=== PATIENT | female | born 1965 | race Two or more races ===

== ENCOUNTER 2017-12-15 18:44 | Emergency (ER) | payer OTHER ==
[~2017-12-15] VITALS: Ht 149.9 cm; Wt 68.0 kg
[2017-12-15] MEDS ORDERED: Norco 5mg/325mg tab ORAL ONE (19:15)
--- NOTE | 2017-12-15 19:29 | Emergency Room Report ---
History of Present Illness General Chief Complaint: Burn/Smoke Inhalation Source: Patient Present Illness HPI 52-year-old female presents to the emergency department complaining of 10 out of 10 in severity pain to the left hand and forearm status post hot oil burn while at work. Patient almost fell and in the process she accidentally stuck her left hand into the fryer. Patient is not sure when her last tetanus vaccination was she denies taking blood thinning medications. She denies history of immunocompromise. reports pain with palpation or movement of the left hand/forearm. denies mittal elsewhere on the body. denies smoke inhalation, CP, palpitations or dizziness. pt .reports mechanical trip and almost fall. She denies hitting her head, Denies midline neck or back pain. Pt. states she is right hand dominant. Allergies: Coded Allergies: No Known Allergies (Unverified , 12/15/17) Patient History Limited by: language barrier Past Medical History: see triage record Pertinent Family History: none Last Menstrual Period: 09/06 Now: No Reviewed Nursing Documentation: PMH: Agreed; PSxH: Agreed Nursing Documentation-PMH Past Medical History: No History, Except For Hx Hypertension: Yes Review of Systems All Other Systems: negative except mentioned in HPI Physical Exam Vital Signs Date Time Temp Pulse Resp B/P (MAP) Pulse Ox O2 Delivery O2 Flow Rate FiO2 12/15/17 18:50 97.9 85 18 178/102 98 Room Air Sp02 EP Interpretation: reviewed, normal General Appearance: no apparent distress, alert, GCS 15, non-toxic Head: normocephalic, atraumatic Eyes: bilateral eye normal inspection, bilateral eye PERRL ENT: hearing grossly normal, normal voice Neck: full range of motion Respiratory: lungs clear, normal breath sounds, no respiratory distress, no wheezing, speaking full sentences Cardiovascular #1: regular rate, rhythm, normal capillary refill Musculoskeletal: back normal, gait/station normal, normal range of motion, non- tender Neurologic: alert, oriented x3, responsive, motor strength/tone normal, sensory intact, normal gait, speech normal - djiboutian speaking, grossly normal Psychiatric: judgement/insight normal Skin: no rash, warm/dry, well hydrated, mittal - 2 -degree circumferential burn to the left hand with splatter/ radiation to the mid left forearm covering 3 % of the BSA, non-circumferential, blister noted to the volar wrist area. Medical Decision Making PA Attestation Dr. Lauren is my supervising Physician whom patient management has been discussed with. Diagnostic Impression: Primary Impression: Second degree burn Additional Impression: Second degree burn of forearm Qualified Codes: T22.212A - Burn of second degree of left forearm, initial encounter ER Course 52-year-old female presents to the emergency department complaining of 10 out of 10 in severity pain to the left hand and forearm status post hot oil burn while at work. Patient almost fell and in the process she accidentally stuck her left hand into the fryer. Patient is not sure when her last tetanus vaccination was she denies taking blood thinning medications. She denies history of immunocompromise. reports pain with palpation or movement of the left hand/forearm. denies mittal elsewhere on the body. denies smoke inhalation, CP, palpitations or dizziness. pt .reports mechanical trip and almost fall. She denies hitting her head, Denies midline neck or back pain. Ddx considered but are not limited to cellulitis, burn, Septic Joint, fracture, d/L, gout, fungal infection, DVT Vital signs: are WNL, pt. is afebrile H&PE are most consistent with : 2 -degree circumferential burn to the left hand with splatter/ radiation to the mid left forearm covering 3 % of the BSA, non- circumferential, blister noted to the volar wrist area. ORDERS: none required at this time, the diagnosis is clinical ED INTERVENTIONS: -[facility]phine IM -[place] PO -SIlvadene cream applied with dressing- applied by RN. -- [facility] WAS CONTACTED> PT. TO CALL CLINIC ON MONDAY 7am FOR AN APPOINTMENT. DISCHARGE: At this time pt. is stable for d/c to home. Will provide printed patient care instructions, and any necessary prescriptions. Care plan and follow up instructions have been discussed with the patient prior to discharge. Last Vital Signs Date Time Temp Pulse Resp B/P (MAP) Pulse Ox O2 Delivery O2 Flow Rate FiO2 12/15/17 18:50 97.9 85 18 178/102 98 Room Air Disposition: HOME, SELF-CARE Condition: Stable Scripts Ibuprofen* (MOTRIN*) 600 Mg Tablet 600 MG ORAL THREE TIMES A DAY, #20 TAB 0 Refills Prov: Celia Velez 12/15/17 Hydrocodone Bit/Acetaminophen 5-325* (NORCO 5-325*) 1 Each Tablet 1 TAB ORAL Q6H PRN for For Pain, #10 TAB 0 Refills Prov: Celia Velez 12/15/17 Silver Sulfadiazine (SILVADENE) 20 Gm Cream..g. 1 APPLIC TP BID, #40 GM Prov: Celia Velez 12/15/17 Departure Forms: Return to Work Return to Work Date: Dec 20, 2017 Work Restrictions: No Heavy Lifting Other Restrictions: Limited use of left hand x 1 week upon return. Return to Full Activity: Dec 27, 2017 Patient Instructions: Second-Degree Burn Additional Instructions: Take medications as directed. Follow up with [facility] ( call on Monday 7am for an appointment). Return sooner to ED if new symptoms occur, or current symptoms become worse. Do not drink alcohol, drive, or operate heavy machinery while taking NORCO as this may cause drowsiness. - Please note that this Emergency Department Report was dictated using [employer] technology software, occasionally this can lead to erroneous entry secondary to interpretation by the dictation equipment. Celia Velez Dec 15, 2017 19:29
[2017-12-15] MEDS ORDERED: Tetanus/Diptheria/Pertussis Vaccine 0.5ml Syr IM ONE (19:30)
[2017-12-15] MEDS ORDERED: NORCO 5-325 TA1 EACH ORAL (19:30)
[2017-12-15] MEDS ORDERED: SILVADENE20 GM TP (19:30)
[2017-12-15] MEDS ORDERED: IBUPROFEN600 MG ORAL (19:30)
[2017-12-15] MEDS ORDERED: Morphine Sulfate 4mg/ml Inj (IV/IM USE ONLY) IM ONE (19:45)
[2017-12-15 20:00] VITALS: BP 178/102
[2017-12-15 20:19] VITALS: BP 149/90
== END 2017-12-15 20:22 | disposition home or self-care (01) ==
LOC: EMR 19:58
DX: T22.212A Burn of second degree of left forearm, initial encounter (principal); T31.0 Burns involving less than 10% of body surface; X10.2XXA Contact with fats and cooking oils, initial encounter; Y92.511 Restaurant or cafe as the place of occurrence of the external cause; Y99.0 Civilian activity done for income or pay; Z23 Encounter for immunization; I10 Essential (primary) hypertension
CPT/HCPCS: 90471; 90715; 96372; 99283; J2270